=== PATIENT | male | born 1975 | race Caucasian/White ===

== ENCOUNTER 2017-03-06 12:46 | Emergency (ER) | payer OTHER ==
--- NOTE | 2017-03-06 14:31 | EDM.PDOC ---
ED HPI GENERAL MEDICAL PROBLEM - General Chief Complaint: Lower Extremity Injury/Pain Stated Complaint: RECENT AMPUTATION AND IT IS SWOLLEN Time Seen by Provider: 03/06/17 13:55 Source of Information: Reports: Patient History Limitations: Reports: No Limitations - History of Present Illness INITIAL COMMENTS - FREE TEXT/NARRATIVE: This is a pleasant 41 yo male who presents with left leg pain. 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 Patient typically ambulates with prosthetic leg, but over the past 2 days he has been unable to wear prosthesis due to pain. Pain is centered over the anterior tibial tuberosity with associated redness and swelling. He denies fever or infection to his surgical site in the past. No discharge from site. Patient has not been on antibiotics recently. Left Lower Leg Pain Score (Numeric/FACES): 8 - Related Data Allergies Allergy/AdvReac Type Severity Reaction Status Date / Time No Known Allergies Allergy Verified 03/06/17 13:23 Home Meds: Home Meds DULoxetine HCl [Cymbalta] 90 mg PO DAILY 03/06/17 [History] Gabapentin [Neurontin] 300 mg PO BEDTIME 03/06/17 [History] Propranolol [Inderal LA] 60 mg PO BID 03/06/17 [History] QUEtiapine [SEROquel] 300 mg PO BEDTIME 03/06/17 [History] Past Medical History Neurological History: Reports: Other (See Below) Other Neuro History: phantium left foot pains Psychiatric History: Reports: Anxiety, Depression Dermatologic History: Reports: Eczema - Past Surgical History Musculoskeletal Surgical History: Reports: Amputation Other Musculoskeletal Surgeries/Procedures:: left lower leg due to frostbitten foot Social & Family History - Tobacco Use Smoking Status *Q: Never Smoker - Caffeine Use Caffeine Use: Reports: Coffee - Recreational Drug Use Recreational Drug Use: No Review of Systems - Review of Systems Review Of Systems: See Below Constitutional: Reports: No Symptoms Eyes: Reports: No Symptoms Ears: Reports: No Symptoms Mouth/Throat: Reports: No Symptoms Respiratory: Reports: No Symptoms Cardiovascular: Reports: No Symptoms Musculoskeletal: Reports: Leg Pain Skin: Reports: Erythema Neurological: Reports: No Symptoms Psychiatric: Reports: No Symptoms ED EXAM, GENERAL - Physical Exam Exam: See Below Exam Limited By: No Limitations General Appearance: Alert, No Apparent Distress Respiratory/Chest: No Respiratory Distress Extremities: Other (ROM at baseline, swelling distal to left knee, no left knee tenderness or effusion) Neurological: Alert, Oriented Skin Exam: Erythema (to tibial tuberosity on left), Increased Warmth, Other ( well healed wound from below the knee amputation) Course - Vital Signs Last Recorded V/S: Last Vital Signs Temp 96.3 F 03/06/17 13:22 Pulse 76 03/06/17 15:22 Resp 16 03/06/17 15:22 BP 123/78 03/06/17 15:22 Pulse Ox 99 03/06/17 15:22 - Orders/Labs/Meds Labs: Laboratory Tests 03/06/17 03/06/17 Range/Units 14:24 14:24 WBC 14.3 H (4.5-11.0) K/uL RBC 4.54 (4.30-5.90) M/uL Hgb 13.0 (12.0-15.0) g/dL Hct 39.2 L (40.0-54.0) % MCV 86 (80-98) fL MCH 29 (27-31) pg MCHC 33 (32-36) % Plt Count 229 (150-400) K/uL Neut % (Auto) 66 (36-66) % Lymph % (Auto) 23 L (24-44) % [place] % (Auto) 10 H (2-6) % Eos % (Auto) 2 (2-4) % Baso % (Auto) 0 (0-1) % Sodium 138 L (140-148) mmol/L Potassium 4.0 (3.6-5.2) mmol/L Chloride 103 (100-108) mmol/L Carbon Dioxide 28 (21-32) mmol/L Anion Gap 11.0 (5.0-14.0) mmol/L BUN 12 (7-18) mg/dL Creatinine 1.1 (0.8-1.3) mg/dL Est Cr Clr Drug Dosing 78.43 mL/min Estimated GFR (MDRD) > 60 (>60) Glucose 111 H (74-106) mg/dL Calcium 8.8 (8.5-10.1) mg/dL C-Reactive Protein 3.16 H (0.0-0.3) mg/dL Meds: Medications Discontinued Medications Generic Name Dose Route Start Last Admin Trade Name Freq PRN Reason Stop Dose Admin Oxycodone/Acetaminophen 1 tab 03/06/17 15:08 03/06/17 15:23 Percocet 325-5 Mg PO 03/06/17 15:09 1 tab ONETIME ONE Administration Departure - Departure Time of Disposition: 15:15 Disposition: Home, Self-Care 01 Condition: Good Clinical Impression: Cellulitis Qualifiers: Site of cellulitis: extremity Site of cellulitis of extremity: lower extremity Laterality: left Qualified Code(s): L03.116 - Cellulitis of left lower limb - Discharge Information Instructions: Pain Medicine Instructions, [id number], Cellulitis, Adult Referrals: PCP,None [Primary Care Provider] - Forms: ED Department Discharge Additional Instructions: Follow up with your primary care clinic or here in the ED in 2-3 days for reevaluation. Return to the Emergency Department immediately with fever, spreading redness, or with worsened symptoms of any kind. - Problem List Review Problem List Initiated/Reviewed/Updated: Yes - Assessment/Plan Assessment:: 41 yo male approximately 6 months s/p left below the knee amputation who presents with erythema, swelling, and tenderness at surgical site. Exam is concerning for cellulitis. WBC count and CRP are elevated, but patient has normal vital signs. Clinical picture is not concerning for severe sepsis. No discharge from surgical site and no appreciable abscess on exam. XR of left knee and remaining lower leg bones is unremarkable. I do not feel further imaging to rule out osteomyelitis is indicated with no skin wounds. Patient will be started on oral antibiotics and he understands he needs infection rechecked in 2 days. Reasons to return to the ED discussed.
--- NOTE | 2017-03-06 14:50 | CR ---
Left knee with application. No definitive fracture.
[2017-03-06] MEDS ORDERED: Acetaminophen/oxyCODONE 325-5 MG Tab PO ONE (15:08)
[2017-03-06 15:23] VITALS: BP 123/78
== END 2017-03-06 16:28 | disposition home or self-care (01) ==
LOC: JP.ED 12:46
DX: L03.116 Cellulitis of left lower limb (principal); F41.9 Anxiety disorder, unspecified; F32.9 Major depressive disorder, single episode, unspecified; Z89.512 Acquired absence of left leg below knee; Z79.899 Other long term (current) drug therapy
CPT/HCPCS: 36415; 73562; 80048; 85025; 86140; 99284; A9270

== ENCOUNTER 2018-05-26 16:38 | Emergency (ER) | payer MEDICAID, OTHER ==
[2018-05-26 16:54] VITALS: BP 126/72
[2018-05-26] MEDS ORDERED: Ibuprofen 400 MG Tab PO ONE (17:19)
[2018-05-26] MEDS ORDERED: cefTRIAXone 1 GM Vial IM ONE (17:19)
[2018-05-26] MEDS ORDERED: LORazepam 1 MG Tab PO ONE (17:20)
[2018-05-26] MEDS ORDERED: cefTRIAXone 1 GM, Lidocaine 1% 2.1 ML IM ONE ×2 (17:25)
--- NOTE | 2018-05-26 17:25 | EDM.PDOC ---
ED HPI GENERAL MEDICAL PROBLEM - General Chief Complaint: Lower Extremity Injury/Pain Stated Complaint: LEFT BELOW KNEE AMPUTATION INFECTION Time Seen by Provider: 05/26/18 17:00 Source of Information: Reports: Patient History Limitations: Reports: No Limitations - History of Present Illness INITIAL COMMENTS - FREE TEXT/NARRATIVE: 42 yo LUBNA presents with skin lesion posterior knee. multiple folliclitis skin around the sleeve for his prosthesis. 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 He is 10 days alcohol free. He previously was drinking 1 gallon of vodka daily. continues to be very tremorous. He last had ativan thsi AM. Denies fever or chills, generally feels well Left Knee Pain Score (Numeric/FACES): 7 - Related Data Allergies Allergy/AdvReac Type Severity Reaction Status Date / Time No Known Allergies Allergy Verified 05/26/18 16:54 Home Meds: Home Meds DULoxetine HCl [Cymbalta] 30 mg PO TID 03/06/17 [History] Gabapentin [Neurontin] 300 mg PO TID 03/06/17 [History] Propranolol [Inderal LA] 60 mg PO BID 03/06/17 [History] QUEtiapine [SEROquel] 300 mg PO BEDTIME 03/06/17 [History] levETIRAcetam [Keppra] 250 mg PO BID 05/26/18 [History] Past Medical History Musculoskeletal History: Reports: None Neurological History: Reports: Concussion, Seizure, Other (See Below) Other Neuro History: phantium left foot pains,,, 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 Psychiatric History: Reports: Addiction, Anxiety, Depression, Panic Attack Dermatologic History: Reports: Eczema, Other (See Below) Other Dermatologic History: rash - Infectious Disease History Infectious Disease History: Reports: Chicken Pox - Past Surgical History Head Surgeries/Procedures: Reports: None GI Surgical History: Reports: Hernia, Inguinal Neurological Surgical History: Reports: None Musculoskeletal Surgical History: Reports: Amputation Other Musculoskeletal Surgeries/Procedures:: left lower leg due to frostbitten foot Dermatological Surgical History: Reports: None Social & Family History - Tobacco Use Smoking Status *Q: Former Smoker Years of Tobacco use: 14 Packs/Tins Daily: 0.5 Used Tobacco, but Quit: Yes Month/Year Tobacco Last Used: 05/2008 - Caffeine Use Caffeine Use: Reports: Soda, Tea - Alcohol Use Date of Last Drink: 05/16/18 - Recreational Drug Use Recreational Drug Use: No Review of Systems - Review of Systems Review Of Systems: See Below Constitutional: Denies: Chills, Fever Respiratory: Denies: Shortness of Breath, Wheezing Cardiovascular: Denies: Chest Pain ED EXAM, GENERAL - Physical Exam Exam: See Below Exam Limited By: No Limitations General Appearance: Alert, WD/WN, No Apparent Distress Respiratory/Chest: No Respiratory Distress Neurological: Alert, Oriented, Other (CIWA scale score 13) Skin Exam: Warm, Dry, Intact, Other (multiple erythemic follicles with 1 cm indurated tender to palpate on posterior lasteral knee) Course - Vital Signs Last Recorded V/S: Last Vital Signs Temp 37.6 C 05/26/18 16:56 Pulse 96 05/26/18 16:56 Resp 14 05/26/18 16:56 BP 126/72 05/26/18 16:56 Pulse Ox 99 05/26/18 16:56 - Orders/Labs/Meds Orders: Active Orders 24 hr Category Date Time Status cefTRIAXone 1 GM,Lidocaine 1% 2.1 ML Med 05/26/18 17:25 Ordered cefTRIAXone [Rocephin] 1 gm Lidocaine 1% [Xylocaine-MPF 1%] 2.1 ml IM ONETIME Meds: Medications Discontinued Medications Generic Name Dose Route Start Last Admin Trade Name Alanis PRN Reason Stop Dose Admin Ceftriaxone Sodium 1 gm 05/26/18 17:19 Rocephin IM 05/26/18 17:20 ONETIME ONE Ibuprofen 400 mg 05/26/18 17:19 Motrin PO 05/26/18 17:20 ONETIME ONE Lorazepam 1 mg 05/26/18 17:20 Ativan PO 05/26/18 17:21 ONETIME ONE - Re-Assessments/Exams Free Text/Narrative Re-Assessment/Exam: 05/26/18 17:30 CIWA scale score 13. discussed use if lorazepam for symptom management. will IM rocephin in ER and home on Bactrim DS twice daily for 7 days Departure - Departure Time of Disposition: 17:31 Disposition: Home, Self-Care 01 Condition: Good Clinical Impression: Folliculitis - Discharge Information *PRESCRIPTION DRUG MONITORING PROGRAM REVIEWED*: No *COPY OF PRESCRIPTION DRUG MONITORING REPORT IN PATIENT YOANDY: No Referrals: PCP,None [Primary Care Provider] - Forms: ED Department Discharge Additional Instructions: Bactrim DS twice daily for 7 days clean skin with antibacterial soap after each use of sleeve - My Orders Last 24 Hours: My Active Orders 05/26/18 17:25 cefTRIAXone 1 GM,Lidocaine 1% 2.1 ML cefTRIAXone [Rocephin] 1 gm Lidocaine 1% [ Xylocaine-MPF 1%] 2.1 ml IM ONETIME - Assessment/Plan Last 24 Hours: My Active Orders 05/26/18 17:25 cefTRIAXone 1 GM,Lidocaine 1% 2.1 ML cefTRIAXone [Rocephin] 1 gm Lidocaine 1% [ Xylocaine-MPF 1%] 2.1 ml IM ONETIME
== END 2018-05-26 17:35 | disposition home or self-care (01) ==
LOC: JP.ED 16:38
DX: L73.9 Follicular disorder, unspecified (principal); Z87.891 Personal history of nicotine dependence
CPT/HCPCS: 96372; 99283; A9270; J0696